=== PATIENT | female | born 1965 | race Caucasian/White ===

== ENCOUNTER 2018-08-08 12:56 | Inpatient (IN) | payer BC ==
[~2018-08-08] VITALS: Ht 162.6 cm; Wt 68.9 kg
[2018-08-08] MEDS ORDERED: IPRATROPIUM BROMIDE 0.5 MG/2.5 ML NEB SOLUTION NEB PRN ×2 (16:30)
[2018-08-08] MEDS ORDERED: ACETAMINOPHEN 325 MG TABLET PO PRN ×3 (16:30→17:15)
[2018-08-08] MEDS ORDERED: LEVOTHYROXINE SODIUM 100 MCG TABLET PO SCH (16:30)
[2018-08-08] MEDS ORDERED: ONDANSETRON HCL 4 MG TABLET PO PRN (16:30)
[2018-08-08] MEDS ORDERED: ALPRAZolam 0.25 MG TABLET PO PRN (16:30)
[2018-08-08] MEDS ORDERED: MELATONIN 5 MG TABLET PO PRN (16:30)
[2018-08-08 16:39] VITALS: BP 122/83
[2018-08-08] MEDS ORDERED: ZINC OXIDE 20% 30 GM OINTMENT TP PRN (17:00)
[2018-08-08] MEDS: OxyCODONE HCL 10 MG IR TABLET PO PRN ×2 (17:10→21:30)
[2018-08-08] MEDS ORDERED: ALBUTEROL SULFATE 2.5 MG/0.5 ML NEB SOLUTION NEB PRN (17:30)
[2018-08-08] MEDS ORDERED: DIPHENOXYLATE/ATROP 2.5-0.025 MG/5 ML ORAL.SYG LIQUID JT SCH (18:00)
[2018-08-08] MEDS: -LIDODERM PATCH NOTE- MISC SCH (20:10)
[2018-08-08] MEDS ORDERED: PNEUMOCOCCAL VACCINE POLYVALENT 0.5 ML VIAL [PPSV23] IM ONE (20:30)
[2018-08-08] MEDS: DOCUSATE SODIUM 100 MG CAPSULE PO SCH (21:00)
[2018-08-08] MEDS: CARBIDOPA/LEVODOPA 25-100 MG TABLET PO SCH (21:00)
[2018-08-08] MEDS: FAMOTIDINE 20 MG TABLET PO SCH (21:00)
[2018-08-08] MEDS: MIRTAZAPINE 15 MG TABLET PO SCH (21:00)
[2018-08-08 21:16] VITALS: BP 129/85
[2018-08-08] MEDS: METOPROLOL TARTRATE 25 MG TABLET PO SCH (21:29)
[2018-08-08] MEDS: AMYLASE/LIPASE/PROTEASE 30/6/19 MU DR CAPSULE PO SCH (21:29)
[2018-08-08] MEDS: LACTOBAC ACID/BULG/BIFID/THERM TABLET PO SCH (21:29)
[2018-08-08] MEDS ORDERED: INSULIN LISPRO 100 UNITS/ML SQ PRN (21:30)
[2018-08-08] MEDS ORDERED: DEXTROSE 50%-WATER 25 GM/50 ML SYRINGE IVP PRN (21:30)
[2018-08-08] MEDS: DIPHENOXYLATE/ATROP 2.5-0.025 MG/5 ML ORAL.SYG LIQUID PO SCH (21:30)
[2018-08-08 21:59] LABS: GLUCOMETER DEV NAME(LOC) 2WR.2; GLUCOSE,POINT OF CARE 93 MG/DL (70-110)
[2018-08-09] VITALS: BP 114/72
[2018-08-09] MEDS: DIPHENOXYLATE/ATROP 2.5-0.025 MG/5 ML ORAL.SYG LIQUID PO SCH ×2 (06:00)
[2018-08-09] MEDS: LEVOTHYROXINE SODIUM 100 MCG TABLET PO SCH (06:04)
[2018-08-09] MEDS: OxyCODONE HCL 10 MG IR TABLET PO PRN ×2 (06:15→16:56)
[2018-08-09 06:33] LABS: EOSINOPHILS % (AUTO) 1.8 % (1.0-6.0); HEMATOCRIT 27.6 % (36-46); HEMOGLOBIN 9.1 g/dL (12.0-16.0); LYMPHOCYTES # (AUTO) 1.2 K/uL (1.0-4.8); LYMPHOCYTES % (AUTO) 20.2 % (22.0-44.0); MEAN CORPUSCULAR HEMOGLOBIN 26.4 pg (26.0-34.0); MEAN CORPUSCULAR HGB CONC 33.2 G/dL (31.0-37.0); MEAN CORPUSCULAR VOLUME 80 fL (80-100); MONOCYTES # (AUTO) 0.4 K/uL (0.1-1.0); MONOCYTES % (AUTO) 6.6 % (2.0-9.0); NEUTROPHILS # (AUTO) 4.2 K/uL (1.8-7.7); NEUTROPHILS % (AUTO) 70.4 % (40.0-70.0); PLATELET COUNT (AUTO) 569 K/uL (150-450); RED BLOOD CELL COUNT(AUTO) 3.46 MIL/uL (4.00-5.20); RED CELL DISTRIBUTION WIDTH 17.6 % (11.5-14.5)
[2018-08-09 06:52] LABS: ALANINE AMINOTRANSFERASE 12 U/L (12-78); ALBUMIN 2.5 g/dL (3.4-5.0); ALKALINE PHOSPHATASE 186 U/L (46-116); ANION GAP 11 mmol/L (8-16); ASPARTATE AMINOTRANSFERASE 13 U/L (15-37); BILIRUBIN,TOTAL 0.3 mg/dL (0.1-1.0); CARBON DIOXIDE 24 mmol/L (22-29); CHLORIDE 104 mmol/L (98-107); CREATININE 0.82 mg/dL (0.60-1.30); GLOMERULAR FILTR. RATE CALC > 60 mL/min (>60); GLUCOSE,RANDOM 96 mg/dL (70-110); POTASSIUM 4.1 mmol/L (3.5-5.1); SODIUM SERUM 139 mmol/L (136-145); TOTAL PROTEIN, SERUM 6.5 g/dL (6.4-8.2); UREA NITROGEN, BLOOD 9 mg/dL (7-18)
[2018-08-09 07:49] LABS: GLUCOMETER DEV NAME(LOC) 2WR.1; GLUCOSE,POINT OF CARE 95 MG/DL (70-110)
[2018-08-09 08:54] VITALS: BP 129/83
[2018-08-09] MEDS: FAMOTIDINE 20 MG TABLET PO SCH ×2 (09:00→20:40)
[2018-08-09] MEDS: ATORVASTATIN CALCIUM 10 MG TABLET PO SCH (09:00)
[2018-08-09] MEDS: DOCUSATE SODIUM 100 MG CAPSULE PO SCH ×2 (09:00→20:35)
[2018-08-09] MEDS: LIDOCAINE 5% TRANSDERMAL PATCH TD SCH (09:00)
[2018-08-09] MEDS: CARBIDOPA/LEVODOPA 25-100 MG TABLET PO SCH ×3 (09:00→20:40)
[2018-08-09] MEDS: AMYLASE/LIPASE/PROTEASE 30/6/19 MU DR CAPSULE PO SCH ×3 (09:55→17:41)
[2018-08-09] MEDS: ASPIRIN 81 MG EC TABLET PO SCH (09:55)
[2018-08-09] MEDS: FERROUS GLUCONATE 324 MG TABLET PO SCH (09:55)
[2018-08-09] MEDS: LACTOBAC ACID/BULG/BIFID/THERM TABLET PO SCH ×2 (09:55→20:44)
[2018-08-09] MEDS: METOPROLOL TARTRATE 25 MG TABLET PO SCH ×2 (09:56→20:44)
[2018-08-09] MEDS: CHOLECALCIFEROL (VIT D3) 1,000 UNITS TABLET PO SCH (09:57)
[2018-08-09] MEDS: FONDAPARINUX SODIUM 2.5 MG/0.5 ML SYRINGE SQ SCH (09:57)
[2018-08-09 15:30] VITALS: BP 118/84
[2018-08-09] MEDS: -LIDODERM PATCH NOTE- MISC SCH (20:39)
[2018-08-09] MEDS: MIRTAZAPINE 15 MG TABLET PO SCH (20:40)
[2018-08-09 20:41] VITALS: BP 113/76
[2018-08-09] MEDS: DIPHENOXYLATE/ATROP 2.5-0.025 MG TABLET PO PRN (20:44)
[2018-08-10 01:55] VITALS: BP 130/91
[2018-08-10] MEDS: OxyCODONE HCL 10 MG IR TABLET PO PRN ×4 (01:55→20:41)
[2018-08-10] MEDS: LEVOTHYROXINE SODIUM 100 MCG TABLET PO SCH (06:16)
[2018-08-10 07:23] VITALS: BP 121/81
[2018-08-10] MEDS: FONDAPARINUX SODIUM 2.5 MG/0.5 ML SYRINGE SQ SCH (08:05)
[2018-08-10] MEDS: ASPIRIN 81 MG EC TABLET PO SCH (08:06)
[2018-08-10] MEDS: AMYLASE/LIPASE/PROTEASE 30/6/19 MU DR CAPSULE PO SCH ×3 (08:06→17:03)
[2018-08-10] MEDS: LACTOBAC ACID/BULG/BIFID/THERM TABLET PO SCH ×2 (08:06→20:41)
[2018-08-10] MEDS: FERROUS GLUCONATE 324 MG TABLET PO SCH (08:06)
[2018-08-10] MEDS: ATORVASTATIN CALCIUM 10 MG TABLET PO SCH (08:07)
[2018-08-10] MEDS: CHOLECALCIFEROL (VIT D3) 1,000 UNITS TABLET PO SCH (08:07)
[2018-08-10] MEDS: FAMOTIDINE 20 MG TABLET PO SCH ×2 (08:07→20:45)
[2018-08-10] MEDS: DOCUSATE SODIUM 100 MG CAPSULE PO SCH (08:07)
[2018-08-10] MEDS: METOPROLOL TARTRATE 25 MG TABLET PO SCH ×2 (08:07→20:41)
[2018-08-10] MEDS: CARBIDOPA/LEVODOPA 25-100 MG TABLET PO SCH (08:08)
[2018-08-10] MEDS: LIDOCAINE 5% TRANSDERMAL PATCH TD SCH (08:08)
[2018-08-10] MEDS: MULTIVITAMINS WITH MINERALS, THERAPEUTIC TABLET PO SCH (11:39)
[2018-08-10 15:15] VITALS: BP 120/79
[2018-08-10 20:37] VITALS: BP 107/78
[2018-08-10] MEDS: DIPHENOXYLATE/ATROP 2.5-0.025 MG TABLET PO PRN (20:41)
[2018-08-10] MEDS: -LIDODERM PATCH NOTE- MISC SCH (20:45)
[2018-08-10] MEDS: MIRTAZAPINE 15 MG TABLET PO SCH (20:45)
[2018-08-11 00:11] VITALS: BP 106/68
[2018-08-11] MEDS: LEVOTHYROXINE SODIUM 100 MCG TABLET PO SCH (06:33)
[2018-08-11 07:30] VITALS: BP 134/84
[2018-08-11] MEDS: AMYLASE/LIPASE/PROTEASE 30/6/19 MU DR CAPSULE PO SCH ×3 (07:59→17:48)
[2018-08-11] MEDS: MULTIVITAMINS WITH MINERALS, THERAPEUTIC TABLET PO SCH (07:59)
[2018-08-11] MEDS: METOPROLOL TARTRATE 25 MG TABLET PO SCH ×2 (07:59→21:04)
[2018-08-11] MEDS: CHOLECALCIFEROL (VIT D3) 1,000 UNITS TABLET PO SCH (07:59)
[2018-08-11] MEDS: OxyCODONE HCL 10 MG IR TABLET PO PRN ×3 (07:59→22:54)
[2018-08-11] MEDS: FERROUS GLUCONATE 324 MG TABLET PO SCH (07:59)
[2018-08-11] MEDS: LIDOCAINE 5% TRANSDERMAL PATCH TD SCH (08:00)
[2018-08-11] MEDS: LACTOBAC ACID/BULG/BIFID/THERM TABLET PO SCH ×2 (08:00→21:04)
[2018-08-11] MEDS: FAMOTIDINE 20 MG TABLET PO SCH ×2 (08:00→21:00)
[2018-08-11] MEDS: ATORVASTATIN CALCIUM 10 MG TABLET PO SCH (08:00)
[2018-08-11] MEDS: ASPIRIN 81 MG EC TABLET PO SCH (08:00)
[2018-08-11] MEDS: FONDAPARINUX SODIUM 2.5 MG/0.5 ML SYRINGE SQ SCH (08:00)
[2018-08-11 16:05] VITALS: BP 124/76
[2018-08-11] MEDS: -LIDODERM PATCH NOTE- MISC SCH (21:00)
[2018-08-11] MEDS: MIRTAZAPINE 15 MG TABLET PO SCH (21:00)
[2018-08-11] MEDS: DIPHENOXYLATE/ATROP 2.5-0.025 MG TABLET PO PRN (21:04)
[2018-08-11 23:55] VITALS: BP 111/71
[2018-08-12] MEDS: LEVOTHYROXINE SODIUM 100 MCG TABLET PO SCH (05:35)
[2018-08-12] MEDS: OxyCODONE HCL 10 MG IR TABLET PO PRN ×4 (05:55→22:48)
[2018-08-12 07:28] VITALS: BP 132/83
[2018-08-12] MEDS: LIDOCAINE 5% TRANSDERMAL PATCH TD SCH (09:00)
[2018-08-12] MEDS: ATORVASTATIN CALCIUM 10 MG TABLET PO SCH ×2 (09:00→09:22)
[2018-08-12] MEDS: FAMOTIDINE 20 MG TABLET PO SCH ×2 (09:00→21:00)
[2018-08-12] MEDS: FERROUS GLUCONATE 324 MG TABLET PO SCH (09:22)
[2018-08-12] MEDS: MULTIVITAMINS WITH MINERALS, THERAPEUTIC TABLET PO SCH (09:22)
[2018-08-12] MEDS: LACTOBAC ACID/BULG/BIFID/THERM TABLET PO SCH ×2 (09:22→20:56)
[2018-08-12] MEDS: AMYLASE/LIPASE/PROTEASE 30/6/19 MU DR CAPSULE PO SCH ×3 (09:23→17:42)
[2018-08-12] MEDS: METOPROLOL TARTRATE 25 MG TABLET PO SCH ×2 (09:23→20:56)
[2018-08-12] MEDS: CHOLECALCIFEROL (VIT D3) 1,000 UNITS TABLET PO SCH (09:23)
[2018-08-12] MEDS: FONDAPARINUX SODIUM 2.5 MG/0.5 ML SYRINGE SQ SCH (09:24)
[2018-08-12] MEDS: LEVOFLOXACIN 500 MG TABLET PO ONE ×2 (09:35→09:57)
[2018-08-12 15:30] VITALS: BP 103/72
[2018-08-12] MEDS: DIPHENOXYLATE/ATROP 2.5-0.025 MG TABLET PO PRN (20:56)
[2018-08-12 20:58] VITALS: BP 121/80
[2018-08-12 23:45] VITALS: BP 117/75
[2018-08-13] MEDS ORDERED: VITAD1000 PO (04:27)
[2018-08-13] MEDS ORDERED: FERG325 PO (04:27)
[2018-08-13] MEDS ORDERED: AMYL1CAP45 PO (04:27)
[2018-08-13] MEDS ORDERED: ACID1TAB13 PO (04:27)
[2018-08-13] MEDS ORDERED: ASPI-1182 PO (04:27)
[2018-08-13] MEDS ORDERED: LEVO50TA11 PO (04:27)
[2018-08-13] MEDS ORDERED: MULT-1239 PO (04:27)
[2018-08-13] MEDS ORDERED: METO25 PO (04:27)
[2018-08-13] MEDS ORDERED: [UNRECOGNIZED DRUG - CODE] SQ (04:29)
[2018-08-13] MEDS ORDERED: OXYC10IR PO (04:29)
[2018-08-13] MEDS: LEVOTHYROXINE SODIUM 100 MCG TABLET PO SCH (05:38)
[2018-08-13] MEDS: OxyCODONE HCL 10 MG IR TABLET PO PRN ×4 (05:38→20:26)
[2018-08-13 06:36] LABS: HEMOGLOBIN 10.5 g/dL (12.0-16.0); LYMPHOCYTES # (AUTO) 1.2 K/uL (1.0-4.8); LYMPHOCYTES % (AUTO) 14.3 % (22.0-44.0); MEAN CORPUSCULAR HGB CONC 32.7 G/dL (31.0-37.0); MEAN CORPUSCULAR VOLUME 82 fL (80-100); MONOCYTES # (AUTO) 0.6 K/uL (0.1-1.0); NEUTROPHILS # (AUTO) 6.5 K/uL (1.8-7.7); NEUTROPHILS % (AUTO) 75.7 % (40.0-70.0); PLATELET COUNT (AUTO) 548 K/uL (150-450); RED BLOOD CELL COUNT(AUTO) 3.89 MIL/uL (4.00-5.20); RED CELL DISTRIBUTION WIDTH 19.1 % (11.5-14.5)
[2018-08-13 06:43] LABS: ALBUMIN 2.9 g/dL (3.4-5.0); BILIRUBIN,TOTAL 0.3 mg/dL (0.1-1.0); CALCIUM, TOTAL 9.2 mg/dL (8.8-10.5); CHOL/HDL RATIO 2.4 (3.9-5.7); CREATININE 0.97 mg/dL (0.60-1.30); POTASSIUM 4.2 mmol/L (3.5-5.1)
[2018-08-13 08:30] VITALS: BP 115/86
[2018-08-13] MEDS: LACTOBAC ACID/BULG/BIFID/THERM TABLET PO SCH ×2 (08:45→20:26)
[2018-08-13] MEDS: METOPROLOL TARTRATE 25 MG TABLET PO SCH ×3 (08:46→21:00)
[2018-08-13] MEDS: FAMOTIDINE 20 MG TABLET PO SCH ×3 (08:46→20:26)
[2018-08-13] MEDS: MULTIVITAMINS WITH MINERALS, THERAPEUTIC TABLET PO SCH (08:46)
[2018-08-13] MEDS: ATORVASTATIN CALCIUM 10 MG TABLET PO SCH ×2 (08:46→09:00)
[2018-08-13] MEDS: FERROUS GLUCONATE 324 MG TABLET PO SCH (08:46)
[2018-08-13] MEDS: AMYLASE/LIPASE/PROTEASE 30/6/19 MU DR CAPSULE PO SCH ×3 (08:46→17:14)
[2018-08-13] MEDS: CHOLECALCIFEROL (VIT D3) 1,000 UNITS TABLET PO SCH (08:46)
[2018-08-13] MEDS: FONDAPARINUX SODIUM 2.5 MG/0.5 ML SYRINGE SQ SCH (08:46)
[2018-08-13 15:02] VITALS: BP 118/75
[2018-08-13 20:26] VITALS: BP 102/69
[2018-08-13] MEDS: DIPHENOXYLATE/ATROP 2.5-0.025 MG TABLET PO PRN (20:42)
[2018-08-13 21:20] VITALS: BP 103/82
[2018-08-14] MEDS ORDERED: FAMO20 PO (02:09)
[2018-08-14 02:50] VITALS: BP 122/66
[2018-08-14] MEDS: OxyCODONE HCL 10 MG IR TABLET PO PRN ×5 (02:51→22:54)
[2018-08-14] MEDS: LEVOTHYROXINE SODIUM 100 MCG TABLET PO SCH (06:27)
[2018-08-14] MEDS: FONDAPARINUX SODIUM 2.5 MG/0.5 ML SYRINGE SQ SCH (07:26)
[2018-08-14] MEDS: CHOLECALCIFEROL (VIT D3) 1,000 UNITS TABLET PO SCH (07:26)
[2018-08-14] MEDS: LACTOBAC ACID/BULG/BIFID/THERM TABLET PO SCH ×2 (07:26→21:26)
[2018-08-14] MEDS: MULTIVITAMINS WITH MINERALS, THERAPEUTIC TABLET PO SCH (07:26)
[2018-08-14 07:27] VITALS: BP 122/83
[2018-08-14] MEDS: METOPROLOL TARTRATE 25 MG TABLET PO SCH ×2 (07:27→21:26)
[2018-08-14] MEDS: FERROUS GLUCONATE 324 MG TABLET PO SCH (07:27)
[2018-08-14] MEDS: FAMOTIDINE 20 MG TABLET PO SCH ×2 (07:27→21:00)
[2018-08-14] MEDS: AMYLASE/LIPASE/PROTEASE 30/6/19 MU DR CAPSULE PO SCH ×3 (07:27→16:52)
[2018-08-14 16:16] VITALS: BP 110/76
[2018-08-14 22:03] VITALS: BP 125/85
[2018-08-15 01:52] VITALS: BP 106/73
[2018-08-15] MEDS: OxyCODONE HCL 10 MG IR TABLET PO PRN ×4 (06:00→19:24)
[2018-08-15] MEDS: LEVOTHYROXINE SODIUM 100 MCG TABLET PO SCH (06:00)
[2018-08-15 07:45] VITALS: BP 121/78
[2018-08-15] MEDS: METOPROLOL TARTRATE 25 MG TABLET PO SCH ×2 (10:22→19:28)
[2018-08-15] MEDS: MULTIVITAMINS WITH MINERALS, THERAPEUTIC TABLET PO SCH (10:22)
[2018-08-15] MEDS: CHOLECALCIFEROL (VIT D3) 1,000 UNITS TABLET PO SCH (10:22)
[2018-08-15] MEDS: FERROUS GLUCONATE 324 MG TABLET PO SCH (10:22)
[2018-08-15] MEDS: FAMOTIDINE 20 MG TABLET PO SCH ×2 (10:23→19:28)
[2018-08-15] MEDS: AMYLASE/LIPASE/PROTEASE 30/6/19 MU DR CAPSULE PO SCH ×3 (10:23→17:36)
[2018-08-15] MEDS: LACTOBAC ACID/BULG/BIFID/THERM TABLET PO SCH ×2 (10:28→19:34)
[2018-08-15] MEDS ORDERED: LEVO100 PO (15:04)
[2018-08-15 15:40] VITALS: BP 118/69
[2018-08-15] MEDS: FONDAPARINUX SODIUM 2.5 MG/0.5 ML SYRINGE SQ SCH (17:40)
[2018-08-15 19:24] VITALS: BP 116/74
[2018-08-16 00:05] VITALS: BP 118/68
[2018-08-16] MEDS: OxyCODONE HCL 10 MG IR TABLET PO PRN ×2 (00:05→06:07)
[2018-08-16] MEDS: LEVOTHYROXINE SODIUM 100 MCG TABLET PO SCH (06:09)
[2018-08-16 08:28] VITALS: BP 122/82
[2018-08-16] MEDS: FERROUS GLUCONATE 324 MG TABLET PO SCH (08:32)
[2018-08-16] MEDS: AMYLASE/LIPASE/PROTEASE 30/6/19 MU DR CAPSULE PO SCH ×2 (08:32→12:37)
[2018-08-16] MEDS: FAMOTIDINE 20 MG TABLET PO SCH (08:32)
[2018-08-16] MEDS: METOPROLOL TARTRATE 25 MG TABLET PO SCH (08:32)
[2018-08-16] MEDS: CHOLECALCIFEROL (VIT D3) 1,000 UNITS TABLET PO SCH (08:32)
[2018-08-16] MEDS: MULTIVITAMINS WITH MINERALS, THERAPEUTIC TABLET PO SCH (08:32)
[2018-08-16] MEDS: LACTOBAC ACID/BULG/BIFID/THERM TABLET PO SCH (08:32)
[2018-08-16] MEDS: FONDAPARINUX SODIUM 2.5 MG/0.5 ML SYRINGE SQ SCH (08:32)
== END 2018-08-16 13:00 | disposition home health service (06) | DRG 947 ==
LOC: 2WR 13:45
PROVIDERS: ADMIT Physical Medicine & Rehabilitation; ATTEND Physical Medicine & Rehabilitation
DX: R53.81 Other malaise (principal); K68.19 Other retroperitoneal abscess; E46 Unspecified protein-calorie malnutrition; E03.9 Hypothyroidism, unspecified; M06.9 Rheumatoid arthritis, unspecified; Z82.49 Family history of ischemic heart disease and other diseases of the circulatory system; Z83.3 Family history of diabetes mellitus; Z93.3 Colostomy status; Z86.711 Personal history of pulmonary embolism; Z68.26 Body mass index [BMI] 26.0-26.9, adult; F32.9 Major depressive disorder, single episode, unspecified; Z88.8 Allergy status to other drugs, medicaments and biological substances; D64.9 Anemia, unspecified; Z74.09 Other reduced mobility
CPT/HCPCS: 87070; 87081; 87205; 92507; 92523; 97110; 97116; 97162; 97166; 97530; 97535; 99366; J1652